=== PATIENT | female | born 1985 ===

== ENCOUNTER 2018-11-23 00:32 | Outpatient (CLI) | payer SELFPAY ==
[2018-11-23 00:51] VITALS: BP 111/72
--- NOTE | 2018-11-23 06:55 | Progress Note ---
Assessment and Plan A: at 40 weeks, 1 day gestation. Not in active labor. Early labor vs. false labor. Reactive NST. P: Patient elected to return home and return when she is in active labor. Discussed daily movement counting and warning signs. Patient to keep her scheduled follow up at her [facility]. Subjective - Subjective Date of service: 11/23/18 Principal diagnosis: at 40 weeks, 1 day gestation Interval history: 33 year old presents to triage at 40 1/7 weeks gestation to rule out labor. Contractions began several hours ago. Denies LOF or VB. Pt. reports active movement. Receives regular care at [facility] and has a follow up visit scheduled there. Patient reports: movement normal, contractions, no loss of fluid, no vaginal bleeding Objective - Vital Signs Vital Signs: Vital Signs - 12hr 11/23/18 11/23/18 11/23/18 00:50 00:51 00:52 Temperature 98.5 F Pulse Rate 83 84 88 Respiratory 18 Rate Blood Pressure 111/72 Blood Pressure 111/72 [Left] O2 Sat by Pulse 98 97 Oximetry 11/23/18 11/23/18 11/23/18 00:56 01:01 01:06 Temperature Pulse Rate 87 72 77 Respiratory Rate Blood Pressure Blood Pressure [Left] O2 Sat by Pulse 96 97 97 Oximetry 11/23/18 11/23/18 11/23/18 01:11 01:16 01:21 Temperature Pulse Rate 72 76 73 Respiratory Rate Blood Pressure Blood Pressure [Left] O2 Sat by Pulse 97 97 97 Oximetry 11/23/18 11/23/18 11/23/18 01:26 01:31 01:36 Temperature Pulse Rate 79 71 72 Respiratory Rate Blood Pressure Blood Pressure [Left] O2 Sat by Pulse 97 97 97 Oximetry 11/23/18 11/23/18 11/23/18 01:41 01:46 01:51 Temperature Pulse Rate 73 74 73 Respiratory Rate Blood Pressure Blood Pressure [Left] O2 Sat by Pulse 97 97 96 Oximetry 11/23/18 01:56 Temperature Pulse Rate 65 Respiratory Rate Blood Pressure Blood Pressure [Left] O2 Sat by Pulse 97 Oximetry - Exam Narrative Exam: SVE after period of observation was 360/-2 Abdomen: Present: normal appearance, soft. Absent: distention, tenderness, guarding, rigidity Uterus: Present: normal, fundal height above umbilicus FHR: category 1 Uterine Contraction Monitor Mode: External Cervical Dilatation: 2 Cervical Effacement Percentage: 40 station: -2
== END 2018-11-23 05:59 | disposition home or self-care (01) ==
LOC: TRG 00:32
PROVIDERS: ATTEND Obstetrics & Gynecology
DX: O47.1 False labor at or after 37 completed weeks of gestation (principal); Z3A.40 40 weeks gestation of pregnancy
CPT/HCPCS: 59025

== ENCOUNTER 2018-11-23 11:56 | Inpatient (IN) | payer OTHER ==
[2018-11-23] MEDS ORDERED: LACTATED RINGERS 1,000 ML ONE (12:32)
[2018-11-23] MEDS ORDERED: BRETHINE IVP PRN (13:46)
[2018-11-23] MEDS ORDERED: STADOL IV PRN (13:46)
[2018-11-23] MEDS ORDERED: XYLOCAINE 2% INFILTRATI ONE ×2 (13:46→19:33)
[2018-11-23] MEDS ORDERED: BRETHINE SUB-Q PRN (13:46)
[2018-11-23] MEDS ORDERED: SUBLIMAZE IV PRN (13:46)
[2018-11-23] MEDS ORDERED: MINERAL OIL PO PRN (13:46)
--- NOTE | 2018-11-23 13:58 | History and Physical Report ---
History of Present Illness Date of examination: 11/23/18 Date of admission: 11/23/18 Chief complaint: Abdominal pain History of present illness: 33yo G 1 P 0 at 38 weeks 5 days here with c/o worsening contractions since yesterday. She reports +FMs but denies VB or LOF. She is a patient from [facility] who is a late transfer at 27 weeks from [place]. records are available and reviewed. Her course has been unremarkable. Labs: Opos, VDRL NR, RI, HBsAg neg, HIV neg, GBS neg. Past History Past Medical History: no pertinent history Past Surgical History: no surgical history Family/Genetic History: none - Obstetrical History Expected Date of Delivery: 12/02/18 Actual Gestation: 38 Week(s) 5 Day(s) : 1 Para: 0 Hx # Term Pregnancies: 0 Number of Pregnancies: 0 Spontaneous Abortions: 0 Induced : 0 Medications and Allergies Allergies Allergy/AdvReac Type Severity Reaction Status Date / Time No Known Allergies Allergy Unverified 11/23/18 00:52 Review of Systems All systems: negative - Vital Signs Vital signs: Vital Signs Temp Pulse Resp BP 98.2 F 80 20 118/83 11/23/18 12:15 11/23/18 12:15 11/23/18 12:15 11/23/18 12:15 Temp Pulse Resp BP Pulse Ox 98.2 F 76 20 116/80 11/23/18 12:15 11/23/18 13:36 11/23/18 12:15 11/23/18 13:36 - Obstetrical FHR: category 2 FHR comments: baseline 150, minimal variability, 10x10 accels, 1 mild varaible decel Uterine Contraction Monitor Mode: External Cervical Dilatation: 3.5 (per RN) Cervical Effacement Percentage: 95 (per RN) station: -2(per RN) Uterine Contraction Frequency (min): 3-4 Uterine Contraction Pattern: Regular Results All other labs normal. Assessment and Plan - Patient Problems (1) 38 weeks gestation of Current Visit: Yes Status: Acute (2) Non-reassuring electronic monitoring tracing Current Visit: Yes Status: Acute (3) Active labor at term Current Visit: Yes Status: Acute Plan to address problem: Admit to L&D with routine labor orders Start Oxytocin for labor augmentation if indicated Anticipate vaginal delivery
[2018-11-23] MEDS ORDERED: PITOCin/NS 20 UNIT/1000ML DRIP 20 UNITS/1,000 ML BAG IV SCH (14:00)
[2018-11-23] MEDS: LACTATED RINGERS 1,000 ML IV SCH ×3 (14:00→18:02)
[2018-11-23 14:25] LABS: Hematocrit 41.8 % (30.3-42.9); Mean Corpuscular HGB Conc 34 % (30-34); Mean Corpuscular Volume 92 fl (79-97); Platelet Count 155 K/mm3 (140-440); Red Blood Count 4.57 M/mm3 (3.65-5.03); Red Cell Distribution Width 13.4 % (13.2-15.2)
--- NOTE | 2018-11-23 16:55 | Event Note ---
Date: 11/23/18 S: Pt resting in bed with family members at bedside. Pain level 12/17. Requests IV pain medicine. Declines Epidural anesthesia O: FHR baseline 150, minimal variability, 10x10 accels, occasional variable decels Ctxs q2-4mins, palpate moderate SVE 5/100/0 A: 33yo G 1 P 0 @ 38w5d Active Labor Category II FHR SROM @ 16:40, clear fluid, moderate amount P: Continue current management Anticipate vaginal delivery
[2018-11-23] MEDS ORDERED: PITOCin/NS 30 UNIT/500ML 30 UNITS/500 ML BAG IV SCH (18:00)
--- NOTE | 2018-11-23 20:02 | Procedure Note ---
OB Delivery Note - Delivery Date of Delivery: 11/23/18 Surgeon: VINCENZO PETERSON Estimated blood loss: other (350cc) - Vaginal Delivery position: OA Intrapartum events: none Delivery induction: none Delivery augmentation: rupture of membranes, pitocin Delivery monitor: external FHT, external uterine Route of delivery: (I was called to the room because patient was complete and feeling like pushing. She pushed to deliver a viable female ( weight 3345gms, 8,9) over an intact perineum, CHARLINE no nuchal cord. Baby was bulb suctioned at delivery with spontaneous cry. The vertex delivered, no nuchal cord and then the anterior shoulder deliverred atrauamtically. The remaineder of the delivery uneventful. Baby was handed to waiting power generation engineer staff and placed on mom. After delayed cord clamping, the cord was clamped and cut and an intact placenta delivered spontaneously. Attention turned to the perineum. A right 2nd degree vaginal sulcus laceration and a left labial/perineal laceration was repaird with 3-0 vicryl in the usual fashion. Excellent hemostasis noted at completion of procedure. A red rubber catheter was used to confirm patency of the urethra. ~100ml clear urine upon catheterization. The rectum was confirmed patent. All sponge, needle and instrument counts were confirmed correctx2. Mom and baby stable to . EBL 350ml.) Delivery placenta: spontaneous Episiotomy: none Delivery laceration: 1st degree, 2nd degree, other (Right lateral vaginal sulcus laceration (2nd drgree): Left labial and perinal laceration(1st degree)) Delivery repair: vicryl Anesthesia: local (lidocaine and fentanyl given at the time of repair), other - Infant A at 1 minute: 8 at 5 minutes: 9 Infant Gender: Female (weight 3345gms.)
[2018-11-23] MEDS ORDERED: LANSINOH TP PRN (20:10)
[2018-11-23] MEDS ORDERED: PERCOCET 5/325 PO PRN (20:10)
[2018-11-23] MEDS ORDERED: PHENERGAN PR PRN (20:10)
[2018-11-23] MEDS ORDERED: ZOFRAN IV PRN (20:10)
[2018-11-23] MEDS ORDERED: MILK OF MAGNESIA PO PRN (20:10)
[2018-11-23] MEDS ORDERED: DERMOPLAST TP PRN (20:10)
[2018-11-23] MEDS ORDERED: BENADRYL PO PRN (20:10)
[2018-11-23] MEDS ORDERED: TUCKS PAD TP PRN (20:10)
[2018-11-23] MEDS ORDERED: DULCOLAX PR PRN (20:10)
[2018-11-23] MEDS ORDERED: TORADOL IV PRN (20:10)
[2018-11-23] MEDS ORDERED: PHENERGAN PO PRN (20:10)
[2018-11-23] MEDS ORDERED: TYLENOL PO PRN (20:10)
[2018-11-23] MEDS: IBUPROFEN PO SCH (20:58)
[2018-11-23] MEDS ORDERED: SODIUM CHLORIDE FLUSH SYRINGE 10 ML IV NR (21:00)
[2018-11-24] MEDS: COLACE PO SCH ×3 (00:06→22:14)
[2018-11-24] MEDS: IBUPROFEN PO SCH ×3 (04:56→18:09)
--- NOTE | 2018-11-24 10:20 | Progress Note ---
Assessment and Plan - Patient Problems (1) (normal spontaneous vaginal delivery) Current Visit: Yes Status: Acute Plan to address problem: Continue routine PP orders Anticipate in 24 hrs Subjective - Subjective Date of service: 11/24/18 Principal diagnosis: S/P Interval history: See admission H & P, OB delivery summary, and PP progress notes Patient reports: appetite normal, voiding normally, pain well controlled, ambulating normally, no flatus, no bowel movement : doing well, bottle feeding (and ) Objective - Vital Signs Latest vital signs: Vital Signs Temp Pulse Resp BP BP Pulse Ox 11/24/18 07:50 97.9 F 72 18 105/62 11/24/18 03:20 98.2 F 68 16 94/48 97 11/24/18 00:10 97.8 F 84 18 91/50 96 11/23/18 22:15 97.9 F 60 18 90/46 96 11/23/18 21:08 70 101/56 11/23/18 20:53 75 100/56 11/23/18 20:45 16 11/23/18 20:38 71 98/54 11/23/18 20:23 86 101/56 11/23/18 20:08 80 99/56 11/23/18 19:53 72 98/64 11/23/18 19:45 18 11/23/18 19:39 73 103/61 11/23/18 18:40 82 124/74 11/23/18 18:05 98.1 F 11/23/18 17:39 101 H 128/84 11/23/18 16:41 85 125/61 11/23/18 15:40 83 113/71 11/23/18 13:36 76 116/80 11/23/18 12:16 80 118/83 11/23/18 12:15 98.2 F 80 20 118/83 Intake and Output 11/23/18 11/24/18 11/24/18 23:59 07:59 15:59 Intake Total 686.050 840 Output Total 500 Balance 686.050 340 Intake: IV 686.050 Lactated Ringers 1,000 ml 681.250 @ 125 mls/hr IV DIRECT DANIEL Rx#:[id number] PITOCin/NS 30 UNIT/500ML 4.8 30 units In 500 ml @ As Directed IV TITR DANIEL Rx#: [id number] Oral 480 Intake, Free Water 360 Output: Urine 500 Void 500 Other: Total, Intake Amount 480 Total, Output Amount 500 Estimated Blood Loss 350 - Exam Breasts: Present: normal Cardiovascular: Present: Regular rate Lungs: Present: Normal air movement Abdomen: Present: soft, normal bowel sounds Uterus: Present: firm, fundal height below umbilicus (U-1) Extremities: Present: normal Deep Tendon Reflex Grade: Normal +2 Incision: Present: other (Second degree laceration, healing as expected) - Labs Labs: Abnormal lab results 11/23/18 Range/Units 13:00 WBC 13.6 H (4.5-11.0) K/mm3
[2018-11-24] MEDS: SENOKOT S PO SCH (12:03)
[2018-11-24] MEDS: PRENATAL VITAMIN PO SCH (12:04)
[2018-11-25] MEDS: IBUPROFEN PO SCH ×4 (02:19→12:29)
[2018-11-25] MEDS: SENOKOT S PO SCH ×2 (02:19→10:03)
[2018-11-25] MEDS: PRENATAL VITAMIN PO SCH (10:03)
[2018-11-25] MEDS: COLACE PO SCH (10:03)
--- NOTE | 2018-11-25 11:14 | Progress Note ---
Assessment and Plan A: PP Day #2 Stable P: Follow Routine Orders D/C home today RTO in 6 Weeks Subjective - Subjective Date of service: 11/25/18 Principal diagnosis: S/P Patient reports: appetite normal, voiding normally, pain well controlled, flatus, bowel movement, ambulating normally : in NICU Objective - Vital Signs Latest vital signs: Vital Signs Temp Pulse Resp BP 11/25/18 09:20 98.4 F 75 18 99/62 11/25/18 00:00 98.4 F 74 18 99/78 11/24/18 16:23 98.6 F 75 18 128/70 Intake and Output 11/24/18 11/25/18 11/25/18 22:59 06:59 14:59 Intake Total 680 600 Balance 680 600 Intake: Oral 680 Intake, Free Water 600 Other: Total, Intake Amount 200 - Exam Breasts: Present: normal Cardiovascular: Present: Regular rate Lungs: Present: Clear to auscultation, Normal air movement Abdomen: Present: normal appearance, soft, normal bowel sounds Uterus: Present: normal, firm, fundal height below umbilicus Extremities: Present: normal
--- NOTE | 2018-11-25 11:16 | Discharge Summary ---
Providers - Providers Date of Admission: 11/23/18 13:59 Date of discharge: 11/25/18 Attending physician: WHITNEY CARTWRIGHT MD 11/23/18 20:14 Consult to Machine Feed Operator [CONS] Routine Reason For Exam: assistance with , SNS Primary care physician: WHITNEY CARTWRIGHT MD Hospitalization Reason for admission: active labor Delivery: Episiotomy: none Laceration: 2nd degree Other procedures: none complications: none Discharge diagnosis: IUP at term delivered, Condition at discharge: Good Disposition: DC-01 TO HOME OR SELFCARE Plan - Provider Discharge Summary Activity: routine, no sex for 6 weeks, no heavy lifting 4 weeks, no strenuous exercise Diet: routine Instructions: routine Additional instructions: [] Smoking cessation referral if applicable(refer to patient education folder for contact #) [] Refer to [facility] Call your doctor immediately for: * Fever > 100.5 * Heavy vaginal bleeding ( >1 pad per hour) * Severe persistent headache * Shortness of breath * Reddened, hot, painful area to leg or breast * Drainage or odor from incision. * Keep incision clean and dry at all times and follow doctor's instructions regarding bathing/showering - Follow up plan Follow up: WHITNEY CARTWRIGHT MD [Primary Care Provider] - 6 Weeks
[2018-11-25 13:47] VITALS: BP 114/71
== END 2018-11-25 13:05 | disposition home or self-care (01) | DRG 807 ==
LOC: TRG 11:56 → LD 13:59 → OB 22:13
PROVIDERS: ADMIT Obstetrics & Gynecology; ATTEND Obstetrics & Gynecology
PROC: 10E0XZZ Delivery of Products of Conception, External Approach (ICD-10-PCS; principal; 2018-11-23)
PROC: 0KQM0ZZ Repair Perineum Muscle, Open Approach (ICD-10-PCS; 2018-11-23)
DX: O76 Abnormality in fetal heart rate and rhythm complicating labor and delivery (principal); Z37.0 Single live birth; Z3A.38 38 weeks gestation of pregnancy; O70.1 Second degree perineal laceration during delivery
CPT/HCPCS: 36415; 85014; 85018; 85027; 86592; 86850; 86900; 86901; G0378; J0595; J2590; J3010; J7120